=== PATIENT | male | born 1975 | race Caucasian/White ===

== ENCOUNTER 2019-02-08 12:14 | Emergency (ER) | payer MEDICAID ==
[~2019-02-08] VITALS: Ht 180.3 cm; Wt 86.4 kg
[2019-02-08 12:27] VITALS: BP 154/97
[2019-02-08] MEDS ORDERED: LIDOCAINE-MPF 1%, 5ML INFIL ONE (13:00)
== END 2019-02-08 13:45 | disposition home or self-care (01) ==
LOC: ED 13:37
DX: L03.011 Cellulitis of right finger (principal)
CPT/HCPCS: 10060; 99283